=== PATIENT | female | born 1975 | race American Indian/Alaskan Native ===

== ENCOUNTER 2020-08-02 15:06 | Emergency (ER) | payer BC ==
[2020-08-02 15:33] VITALS: BP 130/83; PULSE 78
[2020-08-02] MEDS ORDERED: Enoxaparin 120 MG/0.8 ML Syringe SUBCUT ONE (20:40)
--- NOTE | 2020-08-02 20:59 | EDM.PDOC ---
ED HPI GENERAL MEDICAL PROBLEM - General Chief Complaint: Lower Extremity Injury/Pain Stated Complaint: RT LEG SWOLLEN Time Seen by Provider: 08/02/20 16:18 Source of Information: Reports: Patient History Limitations: Reports: No Limitations - History of Present Illness INITIAL COMMENTS - FREE TEXT/NARRATIVE: Patient is a 45-year-old female presenting to the emergency department with complaints of redness, warmth, and swelling to her left lower extremity as well as some intermittent tingling in her right lower extremity. Patient has a history of DVT and PE. States she has been diagnosed with a clotting disorder, however she is not sure the official diagnosis. She believes it is a protein deficiency. She began to develop symptoms of redness warmth and swelling to her right lower extremity on of last week. She has an appointment scheduled with her primary care provider in [place] tomorrow, however she urged her to come to the ER for evaluation this evening. She denies any chest pain or shortness of breath. She is currently taking Eliquis twice daily. Bilateral Lower Leg Pain Score (Numeric/FACES): 8 - Related Data Allergies Allergy/AdvReac Type Severity Reaction Status Date / Time No Known Allergies Allergy Verified 02/07/15 23:06 Home Meds: Home Meds Apixaban [Eliquis] 10 mg PO BID 08/02/20 [History] Ascorbic Acid [Vitamin C] 1 tab PO DAILY 08/02/20 [History] Enoxaparin [Lovenox] 120 mg .XX BID #60 syringe 08/02/20 [Rx] Past Medical History Cardiovascular History: Reports: Hypertension - Past Surgical History GI Surgical History: Reports: Bariatric Procedure Social & Family History - Tobacco Use Tobacco Use Status *Q: Never Tobacco User Second Hand Smoke Exposure: No - Caffeine Use Caffeine Use: Reports: Coffee - Recreational Drug Use Recreational Drug Use: No Review of Systems - Review of Systems Review Of Systems: See Below Constitutional: Reports: No Symptoms Eyes: Reports: No Symptoms Ears: Reports: No Symptoms Nose: Reports: No Symptoms Mouth/Throat: Reports: No Symptoms Respiratory: Reports: No Symptoms Cardiovascular: Reports: Edema (Right lower extremity) GI/Abdominal: Reports: No Symptoms Genitourinary: Reports: No Symptoms Musculoskeletal: Reports: No Symptoms Skin: Reports: Other (Redness and warmth to the medial aspect of the right lower extremity) Neurological: Reports: No Symptoms Psychiatric: Reports: No Symptoms ED EXAM, GENERAL - Physical Exam Exam: See Below General Appearance: Alert, WD/WN, No Apparent Distress Respiratory/Chest: No Respiratory Distress, Lungs Clear, Normal Breath Sounds, No Accessory Muscle Use, Chest Non-Tender Cardiovascular: Normal Peripheral Pulses, Regular Rate, Rhythm, No Edema, No Gallop, No JVD, No Murmur, No Rub Extremities: Other (Redness, warmth, swelling, and tenderness to palpation to the medial aspect of the right lower extremity. Pedal pulses are strong and equal.) Neurological: Alert, Oriented, CN II-XII Intact, Normal Cognition, Normal Gait, Normal Reflexes, No Motor/Sensory Deficits Psychiatric: Normal Affect, Normal Mood Skin Exam: Warm, Dry, Intact, Normal Color, No Rash Course - Vital Signs Last Recorded V/S: Last Vital Signs Temp 98.7 F 08/02/20 15:28 Pulse 78 08/02/20 15:28 Resp 16 08/02/20 15:28 BP 130/83 08/02/20 15:28 Pulse Ox 100 08/02/20 15:28 - Orders/Labs/Meds Orders: Active Orders 24 hr Category Date Time Status Venous Doppler Lwr Ext Bi [US] Stat Exams 08/02/20 16:56 Taken Labs: Laboratory Tests 08/02/20 08/02/20 08/02/20 Range/Units 16:38 16:38 16:38 WBC 7.67 (3.98-10.04) K/mm3 RBC 4.84 (3.98-5.22) M/mm3 Hgb 13.7 (11.2-15.7) gm/dl Hct 42.6 (34.1-44.9) % MCV 88.0 (79.4-94.8) fl MCH 28.3 (25.6-32.2) pg MCHC 32.2 (32.2-35.5) g/dl RDW Std Deviation 50.7 H (36.4-46.3) fL Plt Count 264 (182-369) K/mm3 MPV 9.2 L (9.4-12.3) fl Neut % (Auto) 63.7 (34.0-71.1) % Lymph % (Auto) 26.1 (19.3-51.7) % Travis % (Auto) 6.3 (4.7-12.5) % Eos % (Auto) 3.5 (0.7-5.8) Baso % (Auto) 0.3 (0.1-1.2) % Neut # (Auto) 4.89 (1.56-6.13) K/mm3 Lymph # (Auto) 2.00 (1.18-3.74) K/mm3 Travis # (Auto) 0.48 H (0.24-0.36) K/mm3 Eos # (Auto) 0.27 (0.04-0.36) K/mm3 Baso # (Auto) 0.02 (0.01-0.08) K/mm3 PT (9.7-11.7) SECONDS INR APTT (22-31) SECONDS D-Dimer, Quantitative 0.70 H (0.19-0.50) mg/L Sodium 139 (136-145) mEq/L Potassium 4.6 (3.5-5.1) mEq/L Chloride 103 (98-107) mEq/L Carbon Dioxide 26 (21-32) mEq/L Anion Gap 14.6 (5-15) BUN 16 (7-18) mg/dL Creatinine 0.8 (0.55-1.02) mg/dL Est Cr Clr Drug Dosing 90.85 mL/min Estimated GFR (MDRD) > 60 (>60) mL/min BUN/Creatinine Ratio 20.0 H (14-18) Glucose 89 (74-106) mg/dL Calcium 8.5 (8.5-10.1) mg/dL Total Bilirubin 0.4 (0.2-1.0) mg/dL AST 12 L (15-37) U/L ALT 24 (14-59) U/L Alkaline Phosphatase 103 (46-116) U/L C-Reactive Protein 1.3 H* (<1.0) mg/dL Total Protein 7.8 (6.4-8.2) g/dl Albumin 3.6 (3.4-5.0) g/dl Globulin 4.2 gm/dL Albumin/Globulin Ratio 0.9 L (1-2) 10/14/20 Range/Units 16:38 WBC (3.98-10.04) K/mm3 RBC (3.98-5.22) M/mm3 Hgb (11.2-15.7) gm/dl Hct (34.1-44.9) % MCV (79.4-94.8) fl MCH (25.6-32.2) pg MCHC (32.2-35.5) g/dl RDW Std Deviation (36.4-46.3) fL Plt Count (182-369) K/mm3 MPV (9.4-12.3) fl Neut % (Auto) (34.0-71.1) % Lymph % (Auto) (19.3-51.7) % Travis % (Auto) (4.7-12.5) % Eos % (Auto) (0.7-5.8) Baso % (Auto) (0.1-1.2) % Neut # (Auto) (1.56-6.13) K/mm3 Lymph # (Auto) (1.18-3.74) K/mm3 Travis # (Auto) (0.24-0.36) K/mm3 Eos # (Auto) (0.04-0.36) K/mm3 Baso # (Auto) (0.01-0.08) K/mm3 PT 10.9 (9.7-11.7) SECONDS INR 1.02 APTT 27 (22-31) SECONDS D-Dimer, Quantitative (0.19-0.50) mg/L Sodium (136-145) mEq/L Potassium (3.5-5.1) mEq/L Chloride (98-107) mEq/L Carbon Dioxide (21-32) mEq/L Anion Gap (5-15) BUN (7-18) mg/dL Creatinine (0.55-1.02) mg/dL Est Cr Clr Drug Dosing mL/min Estimated GFR (MDRD) (>60) mL/min BUN/Creatinine Ratio (14-18) Glucose (74-106) mg/dL Calcium (8.5-10.1) mg/dL Total Bilirubin (0.2-1.0) mg/dL AST (15-37) U/L ALT (14-59) U/L Alkaline Phosphatase (46-116) U/L C-Reactive Protein (<1.0) mg/dL Total Protein (6.4-8.2) g/dl Albumin (3.4-5.0) g/dl Globulin gm/dL Albumin/Globulin Ratio (1-2) Meds: Medications Discontinued Medications Generic Name Dose Route Start Last Admin Trade Name Fritzq PRN Reason Stop Dose Admin Enoxaparin Sodium 120 mg 08/02/20 20:40 08/02/20 21:04 Lovenox SUBCUT 08/02/20 20:41 120 mg ONETIME ONE Administration - Re-Assessments/Exams Free Text/Narrative Re-Assessment/Exam: Patient is a 45-year-old female presenting to the emergency department with complaints of redness, warmth, and swelling to the medial aspect of her right lower extremity as well as some intermittent pain and tingling in her left lower extremity. She does have a history of DVT and is currently on Eliquis, however states that she has been on a number of anticoagulants in the past and still developed blood clots well on them. Her primary care provider is a nurse practitioner located out of [place]. She also sees a provider in [facility], however she does not have a tensioning machine operator that she sees for her clotting disorder. I have ordered a CBC, CMP, CRP, D-dimer and PT/INR. We will do venous Doppler ultrasounds of her bilateral lower extremities. 08/02/202039 Venous Doppler ultrasounds of the bilateral lower extremities show Diffuse right lower extremity edema. Linear hypoechoic structure within the proximal left popliteal vein with normal compressibility and color flow that is uncertain if it represents chronic thrombosis versus scarring from prior thrombosis. Noncompressible right proximal and mid superficial femoral vein with no color flow or augmentation suspicious for venous thrombosis. Hyperechoic structure within the right popliteal vein of uncertain etiology. Correlation with surgical history is recommended. Called to discuss these findings with the tensioning machine operator on-call at [facility] and [place] in [place], Dr. Ramirez Wing. He recommends having her stop the Eliquis and start her on Lovenox 120 mg twice daily. Discussed this with the patient. We will give her her first dose of Lovenox this evening. A prescription for 1 month supply will be sent to [facility] in [place] twice. Recommend that she keep her appointment with her primary care provider tomorrow to discuss today's occurrences and follow-up. Discussed that I would recommend that she see a tensioning machine operator for evaluation of her clotting disorder. Discussed return precautions including chest pain or shortness of breath. She verbalized und erstanding of this. Discharge instructions as documented. Departure - Departure Time of Disposition: 20:54 Disposition: Home, Self-Care 01 Condition: Good Clinical Impression: Venous thrombosis of leg - Discharge Information *PRESCRIPTION DRUG MONITORING PROGRAM REVIEWED*: No *COPY OF PRESCRIPTION DRUG MONITORING REPORT IN PATIENT DANA: No Prescriptions: Enoxaparin [Lovenox] 120 mg .XX BID #60 syringe Instructions: Venous Thromboembolism Prevention Referrals: Joy Caban PA [Primary Care Provider] - Reid Miller NP [Ordering Only Provider] - Forms: ED Department Discharge Additional Instructions: He was seen in the emergency department today for pain and swelling to your left leg. Ultrasounds were completed and do show a likely thrombosis of the right proximal and mid superficial femoral vein. We did consult with the tensioning machine operator on-call at [facility] in [place], Dr. Ramirez Espino. He recommended that we stop your Eliquis and have you start taking Lovenox 120 mg twice daily. A prescription for this has been sent to [facility] in [place] twice. Take this medication as prescribed, but stop taking your Eliquis. Follow-up with your primary care tomorrow as scheduled. I would recommend referral to hematology for ongoing management of your clotting disorder. If you should experience any shortness of breath or chest pain, would recommend that you seek treatment at your nearest emergency facility. Sepsis Event Note (ED) - Evaluation Sepsis Screening Result: No Definite Risk - Focused Exam Vital Signs: Vital Signs Temp Pulse Resp BP Pulse Ox 08/02/20 15:28 98.7 F 78 16 130/83 100 - My Orders Last 24 Hours: My Active Orders 08/02/20 16:56 Venous Doppler Lwr Ext Bi [US] Stat - Assessment/Plan Last 24 Hours: My Active Orders 08/02/20 16:56 Venous Doppler Lwr Ext Bi [US] Stat
== END 2020-08-02 21:06 | disposition home or self-care (01) ==
LOC: JD.ED 15:06
DX: I82.403 Acute embolism and thrombosis of unspecified deep veins of lower extremity, bilateral (principal); Z79.01 Long term (current) use of anticoagulants; Z79.899 Other long term (current) drug therapy; I10 Essential (primary) hypertension
CPT/HCPCS: 36415; 80053; 85025; 85379; 85610; 85730; 86140; 93970; 96372; 99284; J1650; 99283

== ENCOUNTER 2024-02-26 20:57 | Emergency (ER) | payer BC ==
[2024-02-26 23:02] VITALS: BP 101/72; PULSE 72
== END 2024-02-26 22:35 | disposition home or self-care (01) ==
LOC: JD.ED 20:57
DX: S81.011A Laceration without foreign body, right knee, initial encounter (principal); I10 Essential (primary) hypertension; Z79.01 Long term (current) use of anticoagulants; Z79.899 Other long term (current) drug therapy; W01.0XXA Fall on same level from slipping, tripping and stumbling without subsequent striking against object, initial encounter
CPT/HCPCS: 99282